=== PATIENT | male | born 1980 | race Caucasian/White ===

== ENCOUNTER 2022-05-24 08:33 | Emergency (ER) | payer OTHER ==
[~2022-05-24] VITALS: Ht 165.1 cm; Wt 69.0 kg
[2022-05-24 08:47] VITALS: BP 119/68
[2022-05-24] MEDS ORDERED: LIDOCAINE HCL/EPINEPHRINE 1%-EPI 1:100,000 20 ML VIAL INFIL ONE (09:45)
[2022-05-24] MEDS ORDERED: TETANUS, DIPHTHERIA, PERTUSSIS VAC/PF 0.5ML (>10YR OLD) IM ONE (09:45)
== END 2022-05-24 12:01 ==
LOC: ER 08:33
DX: S01.312A Laceration without foreign body of left ear, initial encounter (principal); E11.9 Type 2 diabetes mellitus without complications; I10 Essential (primary) hypertension; E78.00 Pure hypercholesterolemia, unspecified; Y00.XXXA Assault by blunt object, initial encounter; Y07.499 Other family member, perpetrator of maltreatment and neglect; Y93.89 Activity, other specified; Y92.018 Other place in single-family (private) house as the place of occurrence of the external cause
CPT/HCPCS: 12011; 70450; 70486; 90471; 90715; 99284; J3490; Z7610